=== PATIENT | female | born 1990 | race Two or more races ===

== ENCOUNTER 2024-11-12 09:40 | Inpatient (IN) | payer MEDICAID, SELFPAY ==
[2024-11-12] VITALS (85 sets, daily range): BP systolic 101–136; BP diastolic 60–75; PULSE 74–95; RESP 18; TEMP 36.8; O2SAT 81–100
--- NOTE | 2024-11-12 12:08 | PD.LDHP ---
Documentation for date of: 11/12/24 OB Labor/Induct. HPI History of Present Illness History of present illness: Dictated on STAT line in [facility] #9. [id number]. Meds Home Medications and Allergies Home Medications ?Medication ?Instructions ?Recorded ?Confirmed ?Type gkaikokv-[id number]-[id number]-FA 1 mg 1 tab PO QDAY 03/16/23 11/12/24 History tablet ferrous sulfate 325 mg (65 mg 325 mg PO QDAY 11/12/24 11/12/24 History iron) tablet Allergies Allergy/AdvReac Type Severity Reaction Status Date / Time No Known Allergies Allergy Verified 11/12/24 11:59 OB Exam Physical Exam Vital signs: Pulse BP Pulse Ox 77 136/73 H 99 11/12/24 11:52 11/12/24 11:52 11/12/24 12:03
--- NOTE | 2024-11-12 13:07 | ESHP_ITS ---
RE: MILENA NEGRON : 1990 DATE OF ADMISSION: 11/12/2024 HISTORY OF PRESENT ILLNESS: This is a 33-year-old 6, para 5-0-0-5 with a due date of 11/13 with intrauterine at 39 weeks and 6 days who presents today complaining of contractions and is noted to be 4 cm dilated. The patient denies any leaking. She reports some vaginal spotting off and on since last night. She denies any heavy vaginal bleeding. She reports normal movement. Her care was complicated by iron deficiency anemia. ALLERGIES: NO KNOWN DRUG ALLERGIES. MEDICATIONS: 1. multivitamin 1 tablet p.o. daily. 2. Ferrous sulfate 325 mg one p.o. b.i.d. PAST MEDICAL HISTORY: Iron deficiency anemia. SOCIAL HISTORY: She is . She denies any alcohol, drug use or smoking. FAMILY HISTORY: Hypertension. OBSTETRIC HISTORY: In 2008, 36-week, normal vaginal delivery, female, no complications; in 2009, 39-week normal, vaginal delivery, female, 7 pounds 9 ounces, no complications; in 2012, 37-week, normal vaginal delivery, male, 8 pounds 2 ounces, no complications; in 2018, 40- week normal vaginal delivery, 6 pounds 7 ounces, no complications; in 2022, 40-week normal vaginal delivery, 7 pound 2 ounce, female, no complications. REVIEW OF SYSTEMS: She denies any chest pain, palpitations, cough, fever, shortness of breath or lower extremity pain. She denies any headache, change in vision or right upper quadrant pain. PHYSICAL EXAMINATION: VITAL SIGNS: Blood pressure is 136/73, heart rate 77, respirations 18, temperature 98.2, weight 166 pounds, and pulse ox is 99% on room air. LUNGS: Clear to auscultation bilaterally. HEART: Regular rate and rhythm. ABDOMEN: Gravid consistent with estimated weight 7.5 pounds. PELVIC: See RN notes. EXTREMITIES: Nontender. SKIN: No gross rashes or lesions. NEUROLOGIC: No focal deficits. ASSESSMENT AND PLAN: Intrauterine proximally at 39 weeks and 6 days, labor anticipate spontaneous vaginal delivery. Informed consent was obtained. The patient was made aware of the risks, complications, alternatives, and benefits of the proposed procedure and she agrees. She is aware of the risk of operative vaginal delivery and delivery. She agrees with these modes of delivery if indicated as the patient is a grand multiparous, we will plan to have two large bore IVs in place at the time of delivery and 2 units of packed red blood cells standing by. DT: 12:07:10 TT: 13:04:00 Ref: [id number] - TID: [id number]
[2024-11-12 13:18] LABS: Basophils % (Auto) 0 % (0-2.5); Eosinophils # (Auto) 0.1 Thou/mm3 (0.0-0.5); Eosinophils % (Auto) 2 % (0-10); Hematocrit 37.2 % (36.0-46.0); Immature Granulocytes % (Auto) 1 % (0-0); Immature Granulocytes Auto 0.07 Thou/mm3 (0.00-0.00); Lymphocytes # (Auto) 1.8 Thou/mm3 (1.0-4.8); Lymphocytes % (Auto) 19 % (10-50); Mean Corpuscular HGB Conc 32.3 g/dl (31.0-37.0); Mean Corpuscular Hemoglobin 27.6 pg (25.0-35.0); Mean Corpuscular Volume 86 fL (80-100); Monocytes # (Auto) 0.6 Thou/mm3 (0.0-0.8); Monocytes % (Auto) 6 % (0-12); Neutrophils # (Auto) 6.7 Thou/mm3 (1.8-7.7); Neutrophils % (Auto) 72 % (37-80); Nucleated Red Blood Cell % 0 /100 WBC (0); Platelet Count 224 Thou/mm3 (140-440); RDW Standard Deviation 48.4 fL (36.4-46.3); Red Blood Count 4.35 Miln/mm3 (4.00-5.20); White Blood Count 9.4 Thou/mm3 (3.6-11.0)
[2024-11-12 13:21] LABS: Collection Type, Urine Clean Catch
[2024-11-12 13:27] LABS: Bilirubin,Urine Negative (Negative); Blood,Urine Negative (Negative); Clarity,Urine Clear (Clear/Hazy); Color,Urine Yellow (Lt Yel-Yel); Glucose, Urine Negative (Negative); Ketones,Urine Negative (Negative); Leukocyte Esterase,Urine Positive (Negative); Nitrite,Urine Negative (Negative); PH,Urine 6.5 (5.0-7.0); Protein,Urine Trace (Neg - Trace); RBC,Urine 27 /hpf (0-3); Specific Gravity,Urine 1.022 (1.001-1.035); Squamous Epithelial Cell,Urine 4 /hpf (0-5); Urobilinogen,Urine Negative mg/dL (0.0-1.0); WBC,Urine 4 /hpf (0-5)
[2024-11-12 13:46] LABS: Fibrinogen 506 mg/dL (175-375); Partial Thromboplastin Time 27.6 Seconds (22.0-36.0); Prothrombin Time 10.8 Seconds (9.0-12.2)
[2024-11-12 13:47] LABS: Alanine Aminotransferase 15 U/L (10-49); Albumin, Serum 3.8 gm/dL (3.5-5.0); Albumin/Globulin Ratio 1.2 (1.2-2.2); Alkaline Phosphatase 219 U/L (46-116); Anion Gap 6 (7-16); Aspartate Amino Transferase 36 U/L (0-34); BUN/Creatinine Ratio 12 Ratio (12-20); Bilirubin,Total 0.3 mg/dL (0.3-1.2); Blood Urea Nitrogen 6 mg/dL (9-23); Calcium 8.8 mg/dL (8.3-10.6); Carbon Dioxide 24.2 mMol/L (20.0-31.0); Chloride 107 mMol/L (98-107); Creatinine (Component) 0.5 mg/dL (0.6-1.3); Estimated Creatinine Clearance 187.3 mL/min (>60); Globulin 3.1 gm/dL (2.3-3.5); Glucose 81 mg/dL (74-106); Osmolality,Calculated 270 (275-295); Potassium 4.2 mMol/L (3.4-5.1); Sodium 137 mMol/L (136-145); Total Protein 6.9 gm/dL (5.7-8.2); Uric Acid 3.5 mg/dL (3.1-7.8); eGFR > 60 See Note
[2024-11-12 14:01] LABS: Syphilis Nonreactive (Nonreactive)
[2024-11-12 15:27] LABS: Creatinine,Random Urine 132 mg/dL (30-125); Protein Total, Random Urine 46 mg/dL (1-14)
[2024-11-12] MEDS: cefTRIAXone 1,000 MG in SODIUM CHLORIDE 0.9% (P) 50 ML 100 MG IV (16:19)
--- NOTE | 2024-11-12 17:06 | PD.LDPN ---
Documentation for date of: 11/12/24 OB Labor Progress Note Pain Control Comments: None Pelvic Exam Dilation (cm): 4 Effacement (%): 50 station: -3 Amniotic membrane status: Intact Comments: VTX Contractions Monitor mode: External Contraction frequency: 4-5 Contraction intensity: Mild Status status: Category l Assessment and Plan Comments: Early labor v. False Labor
[2024-11-13] VITALS (15 sets, daily range): BP systolic 99–126; BP diastolic 57–74; PULSE 71–98; RESP 16–19; TEMP 36.7–37.1; O2SAT 96–98
--- NOTE | 2024-11-13 05:49 | PD.LDDELS ---
Data ([facility]) Data Hx Section: No : 6 Para: 5 Term: 4 : 1 : 0 Delivery Data ([facility]) Labor Data ROM Date: 11/13/24 ROM Time: 03:06 Rupture Type: SROM Amniotic Fluid: Clear Delivery Data EDC: 11/13/24 EDC calculated by:: LMP/early US confirmation Labor Onset Stage 1 Date: 11/12/24 Labor Onset Stage 1 Time: 11:09 Labor Onset Stage 2 Date: 11/13/24 Labor Onset Stage 2 Time: 04:48 Delivery Date: 11/13/24 Delivery Time: 04:54 Gestational age (weeks): 40 Gestational age (days): 0 Placenta Delivery Date: 11/13/24 Placenta Delivery Time: 04:59 Delivered by: Stu Riley Delivery nurse: Anisa Kellogg Other staff at delivery: Nurse Other staff at delivery: Nurse Other staff at delivery: Nursery Nurse Other staff at delivery: Dannie Joseph Other staff at delivery: Sylwia Levine Other staff at delivery: Ayo Cabrera Delivery Method Delivery: Vaginal Delivery Type: Spontaneous Presentation: Vertex Position: OA Anesthesia Type Primary Anesthesia: None Placenta Placenta Delivery: Spontaneous Placenta Cultures Obtained: No Placenta Sent for Examination: No Cord Sample: Cord Blood Obtained EBL Estimated blood loss (ml): 200 Additional Procedures None Complications Complications: None Data ([facility]) Data Infant Gender: Male Weight Grams: 3170 1 Minute Total: 6 5 Minute Total: 8
--- NOTE | 2024-11-13 05:50 | ESDS_ITS ---
DS: Providers Provider Date of admission: 11/12/24 10:02 Primary care physician: Physician No Primary/Family Admitting Provider: Stu Riley MD Attending Provider on Admission: Stu Riley MD Attending Provider on DC: Stu Riley MD Discharging Provider: Stu Riley MD DS: Diagnosis Problem List Completed Was Problem List Reviewed/Reconciled?: Yes Summary/Hosp Course Brief History: Dictated on STAT line in [facility] #9. [id number]. Time Spent with Patient Time attestation: Total time spent providing and/or coordinating discharge services: Exam Vital Signs Temp Pulse Resp BP Pulse Ox 98.7 F 80 18 121/73 99 11/13/24 02:03 11/13/24 05:44 11/13/24 02:03 11/13/24 05:44 11/12/24 19:20 Discharge Plan Plan Patient Disposition: HOME (Self Care) Patient condition on transfer: Stable Prescriptions/Referrals Prescriptions/Med Rec: New ibuprofen 600 mg tablet 600 mg PO Q6H PRN (Reason: pain) Qty: 30 0RF Continued ferrous sulfate 325 mg (65 mg iron) tablet 325 mg PO QDAY Patient Comments: TOME 1 TABLETA POR V A ORAL TODOS LOS D yspsoqop-[id number]-Ws-FA 1 mg Tablet 1 tab PO QDAY Discontinued ibuprofen 600 mg tablet 600 mg PO Q6H PRN (Reason: pain) Qty: 30 0RF Referrals: No Primary/Family,Physician [Primary Care Provider] - Patient/Caregiver Discharge Instructions Print Language: Austrian Stand Alone Forms: Megan Award Info., Patient Portal Info Letter Discharge Order Discharge Orders: Discharge (Routine); Ordered 11/14/24 Ordered By: Stu Riley Planned Discharge Date 11/14/24
[2024-11-13] MEDS: IBUPROFEN TAB 400 MG TABLET 800 MG PO ×2 (06:00→20:14)
[2024-11-13] MEDS: PRENATAL VITAMIN/FE FUM/FA TABLET 1 TAB PO (09:32)
[2024-11-13] MEDS: FERROUS SULF 325 MG TABLET PO (09:32)
[2024-11-13 11:52] LABS: Basophils % (Auto) 0 % (0-2.5); Eosinophils # (Auto) 0.1 Thou/mm3 (0.0-0.5); Eosinophils % (Auto) 1 % (0-10); Hematocrit 32.3 % (36.0-46.0); Hemoglobin 10.7 g/dL (12.0-16.0); Immature Granulocytes % (Auto) 1 % (0-0); Immature Granulocytes Auto 0.08 Thou/mm3 (0.00-0.00); Lymphocytes # (Auto) 1.7 Thou/mm3 (1.0-4.8); Lymphocytes % (Auto) 11 % (10-50); Mean Corpuscular HGB Conc 33.1 g/dl (31.0-37.0); Mean Corpuscular Hemoglobin 27.9 pg (25.0-35.0); Mean Corpuscular Volume 84 fL (80-100); Monocytes # (Auto) 1.1 Thou/mm3 (0.0-0.8); Monocytes % (Auto) 7 % (0-12); Neutrophils % (Auto) 81 % (37-80); Nucleated Red Blood Cell % 0 /100 WBC (0); Platelet Count 223 Thou/mm3 (140-440); RDW Standard Deviation 46.5 fL (36.4-46.3); Red Blood Count 3.83 Miln/mm3 (4.00-5.20); White Blood Count 14.9 Thou/mm3 (3.6-11.0)
[2024-11-13] MEDS: cefTRIAXone 1,000 MG in SODIUM CHLORIDE 0.9% (P) 50 ML 100 MG IV (15:28)
[2024-11-14 02:11] VITALS: BP 114/73; PULSE 86; RESP 18; TEMP 36.6; O2SAT 98
[2024-11-14 04:21] VITALS: BP 97/60; PULSE 79; RESP 18; TEMP 36.9; O2SAT 98
[2024-11-14 09:00] VITALS: BP 108/66; PULSE 90; RESP 18; TEMP 36.7; O2SAT 98
[2024-11-14] MEDS: PRENATAL VITAMIN/FE FUM/FA TABLET 1 TAB PO (09:23)
[2024-11-14] MEDS: FERROUS SULF 325 MG TABLET PO (09:23)
== END 2024-11-14 15:45 | disposition home or self-care (01) | DRG 560 ==
LOC: S4SX 11-13 05:57 → S4NX 11-13 07:47
PROVIDERS: Admitting Provider Specialist; Visit Provider Specialist
DX: O99.02 Anemia complicating childbirth (principal); D50.9 Iron deficiency anemia, unspecified; Z37.0 Single live birth; Z3A.39 39 weeks gestation of pregnancy
CPT/HCPCS: 36415; 59025; 59409; 80053; 81001; 82570; 84156; 84550; 85025; 85384; 85610; 85730; 86780; 86850; 86900; 86901; 86923; J0696; J7050; A9270